=== PATIENT | male | born 1940 | race Caucasian/White ===

== ENCOUNTER → 2016-05-15 | Outpatient (CLI) | payer BC ==
[~2016-05-15] MED LIST: ASPI-461 PO; BUPR300T43 PO; CALCTAB5 PO; DUTA0.5C PO; IBUP-1050 PO; MECL1TAB42 PO; MULTTAB58 PO; NAPR1TAB9 PO; NTRGSL/4 UT; RABE20TA5 PO; ROSU20TA PO; SENNTAB23 PO
--- NOTE | 2016-05-16 14:42 | DIAGNOSTIC IMAGING REPORT ---
CERVICAL SPINE 4 OR 5 VIEWS CLINICAL HISTORY: Neck pain. COMPARISON STUDY: No previous studies for comparison. FINDINGS: There are suspected bilateral hearing aids. C7 is partially obscured on this exam. No fracture or suspicious lesion is identified within visualized portions of the cervical spine. There is moderate disc space narrowing at C6-C7. There is moderate multilevel facet arthrosis. There is resultant multilevel bony neural foraminal narrowing. IMPRESSION: 1. No cervical spine fracture or subluxation. 2. Moderate multilevel degenerative changes of the cervical spine with resultant multilevel bony neural foraminal narrowing. 3. Partial obscuration of C7. Electronically signed by: Vinny Ca M.D. 05/16/2016 2:40 PM Dictated Date/Time: 05/16/2016 2:39 PM
== END | disposition home or self-care (01) ==
LOC: C.RDSM 15:40
PROVIDERS: ATTEND Physical Medicine & Rehabilitation Sports Medicine
DX: M54.2 Cervicalgia (principal)

== ENCOUNTER → 2016-09-11 | Outpatient (CLI) | payer BC ==
--- NOTE | 2016-09-11 14:31 | DIAGNOSTIC IMAGING REPORT ---
LEFT WRIST MIN 3 VIEWS ROUTINE CLINICAL HISTORY: CARPAL TUNNEL SYNDROME LEFT WRIST pain COMPARISON: None. DISCUSSION: Moderate generalized degenerative change. Subchondral cysts of the lobe of the radial styloid as well as distal ulna. Chondrocalcinosis. Calcification triangular fibrocartilage. No acute bony abnormality. There is no evidence for soft tissue swelling. IMPRESSION: Degenerative change. Chondrocalcinosis. Electronically signed by: Dontrell Donis M.D. 09/11/2016 2:29 PM Dictated Date/Time: 09/11/2016 2:29 PM
== END | disposition home or self-care (01) ==
LOC: C.RDSM 14:25
PROVIDERS: ATTEND Physician Assistant
DX: G56.02 Carpal tunnel syndrome, left upper limb (principal)

== ENCOUNTER → 2016-11-17 | Day surgery (SDC) | payer BC ==
[2016-11-05 11:05] VITALS: Ht 180.3 cm; Wt 81.8 kg
[~2016-11-17] VITALS: Ht 180.3 cm; Wt 81.8 kg
[~2016-11-17] MED LIST changes: +ATROPINE SULFATE 0.1 MG/ML 5ML SYR IV PRN; +BUPIVACAINE 0.5 % 5 MG/1 ML MPF 30ML VIAL ONE; -CALCTAB5 PO; +CLINDAMYCIN 900MG IV SCH; +EpHEDrine SULFATE INJ 50 MG/ML AMP IV PRN; +FENTANYL CITRATE INJ 50 MCG/1 ML 2 ML VIAL IV PRN; +FENTANYL CITRATE INJ 50 MCG/1 ML 2 ML VIAL ONE; +LACTATED RINGER'S 1000ML 1,000 ML IV SCH; +LIDOCAINE HCL 2% 2 ML VIAL (20MG/ML) ONE; +LIDOCAINE HCL 2% LOCAL 20 ML VIAL ONE; +MIDAZOLAM HCL 1 MG/ML 2ML VIAL ONE; +ONDANSETRON INJ 2 MG/ML 2 ML VIAL IV PRN; +PROPOFOL IV EMULSION 10 MG/ML 20 ML VIAL IV ONE; +SODIUM CHLORIDE 0.9% 1000ML 1,000 ML IV SCH
--- NOTE | 2016-11-17 06:37 | History & Physical Bridge Note ---
H&P Re-Evaluation Bridge Note: I have examined the patient, reviewed the History & Physical and in the interval since the performance of the History & Physical I have noted the following changes of clinical significance: No changes noted
--- NOTE | 2016-11-17 06:39 | Discharge Instructions ---
Discharge Instructions Date of Service Nov 17, 2016. Visit Reason for Visit: Left Wrist Carpal Tunnel Syndrome Discharge Discharge Diagnosis / Problem: same Discharge Goals Goal(s): Decrease discomfort, Improve function Medications Stopped Medications Name(s): na Restart Stopped Medication(s): use all scripts as directed Activity Recommendations Activity Limitations: as noted below Lifting Limitations: until after follow-up appointment Exercise/Sports Limitations: until after follow-up appointment May Resume Sexual Activity: when tolerated Shower/Bathe: keep incision dry Anesthesia . Post Anesthesia Instructions: If you have had General Anesthesia or IV Sedation: * Do not drive today. * Resume driving when surgeon permits. * Do not make important decisions or sign legal documents today. * Call surgeon for: 1. Temperature elevations greater than 101 degrees F. 2. Uncontrollable pain. 3. Excessive bleeding. 4. Persistent nausea and vomiting. 5. Medication intolerance (nausea, vomiting or rash). * For nausea and vomiting use only clear liquids such as: tea, soda, bouillon until nausea subsides, then gradually increase diet as tolerated. * If you have any concerns or questions, call your surgeon's office. If physician is unavailable and it is an emergency, call 911 or go to the nearest emergency room. . Instructions / Follow-Up Instructions / Follow-Up The following are instructions to follow after minor hand surgery. ACTIVITY RECOMMENDATIONS: * Minimize activity until your first visit after surgery. * No excessive walking, jogging, sports or laboring. * Return to activity is individualized. Most patients are able to return to everyday activities within 2 weeks. * Return to sports or intensive labor usually occurs at 1-2 months. * DRIVING: Driving may be resumed when you feel you have adequate pain control and use of the hand. * BATHING: You may shower or sponge-bathe immediately after surgery. The dressing will need to be covered with a plastic bag or plastic wrap until the dressing is changed on the fourth or fifth day after surgery. Once the dressing has been changed on the fourth or fifth day after surgery, you may shower and get the incision wet. * Wash with regular soap and water. * Do not bathe (submerge the incision), soak, swim or use a hot tub until the incision is completely healed over with normal skin and the doctor has given the OK to proceed. * There is no need to apply any ointments, powders or salves to your incision. * Do not apply alcohol or hydrogen peroxide directly to the incision. Diluted peroxide (50:50 mixture with sterile saline) may be used to clean dried blood from around the incision area. WORK/SCHOOL: * You may return to sedentary work or school when you are feeling comfortable. This is usually 3-7 days after surgery. * Expect increased discomfort with increased activity. Continue to elevate and ice the hand as much as possible. DIET: * Resume previous diet. MEDICATIONS: * You will have a prescription for pain medication and an anti-inflammatory medication after surgery. Use the pain pills for severe pain and the anti-inflammatory for less severe pain. * Once the pain pills have run out, try to use the anti-inflammatory. If this is not effective then contact the office for assistance. * The pain medication may cause nausea, constipation and sleepiness. You should see how they affect you before driving or similar activity. * The anti-inflammatory may cause stomach upset and bleeding. If this occurs, let your doctor know immediately . * Some patients may need blood clot prevention. This can be done with either a pill or a simple shot. Your doctor will advise you on when to begin these medications and how to take them. * Do not take aspirin or other anti-inflammatory products (i.e. Advil or Aleve ) if taking blood thinner medication. * Take a stool softener like Colace or a stimulant like Senokot to prevent constipation. SPECIAL CARE INSTRUCTIONS: ICE: * Do not apply ice directly to the skin. * Use a thin dressing or stockinet between the skin and ice bag. The dressing in place after surgery will suffice. * Apply ice for 20-30 minutes and repeat every 2-4 hours. This is especially important for the first 3-7 days after surgery. * Once the pain improves, use ice as needed. ELEVATION: * Keep your hand elevated at or above the level of your heart as much as possible. * Expect some increased discomfort and swelling if you allow your hand to hang down for any length of time. DRESSING: * Your dressing will be changed 4-5 days after surgery by the physical therapist or physician's senior executive assistant. Leave your dressing intact until this time. * You may then change your dressing daily with clean dry gauze or Band-aids and a soft wrap or stockinet. * Always wash your hands prior to touching the incision area. * Once the stitches are removed, you may leave the wound open to air or cover with a thin bandage. * There is no need to apply any ointments, powders or salves to your incision. * Expect some bloody drainage for the first few days after surgery. * Leave the tape strips in place (if present) for 5-7 days. * The initial dressing after surgery may become soaked with blood or fluid which is normal. You may reinforce your dressing with clean, dry gauze as needed. BRACE: * Bracing is generally not needed after routine hand surgery. THERAPY: * Physical therapy may be prescribed after your surgery. * For carpal tunnel and trigger digit surgery you may begin moving your fingers and wrist immediately after surgery as tolerated. * Be careful to not overuse. * Once the sutures are removed, further range of motion exercises can be performed. * Hand incisions may be very sensitive for a few months after surgery so avoid excessive pressure on the incision. If necessary, use a padded weightlifters' glove. * You may massage the incision with skin cream to make it less sensitive and reduce scarring. * Hand strength usually returns with normal use. * If needed, squeezing a soft sponge or Play-dough may help. * Your doctor will recommend physical therapy if necessary. PROBLEMS/QUESTIONS: * If you have any problems such as severe pain, numbness, tingling or high fevers or if you have any questions, please contact the office at [phone]. * It is not uncommon to have some numbness and tingling after the surgery especially if you have had a nerve block done. This should gradually improve over the first 1- 2 days. If this persists longer or worsens then contact the office. FOLLOW UP VISIT: * If not already scheduled, please call the office at to schedule follow-up appointments for approximately 10 days, 6 weeks and 3 months after surgery. Diet Recommendations Recommended Home Diet: resume previous diet Procedures Procedures Performed: left Carpal tunnel release Pending Studies Studies pending at discharge: no Medical Emergencies . Who to Call and When: Medical Emergencies: If at any time you feel your situation is an emergency, please call 911 immediately. . Non-Emergent Contact Non-Emergency issues call your: Specialist Call Non-Emergent contact if: temperature is above 101.5 . . "Provider Documentation" section prepared by Bob Red. .
--- NOTE | 2016-11-17 07:31 | [facility] Post Operative Brief Note ---
Immediate Operative Summary Operative Date Nov 17, 2016. Pre-Operative Diagnosis Left Carpal Tunnel Release Post-Operative Diagnosis Same Procedure(s) Performed Left Wrist Open Carpal Tunnel Release Surgeon Dr Red Avionics Engineer Surgeon(s) Shelly Posey PA-C Estimated Blood Loss Trace Findings CTS Fluids (cc crystalloids) 600cc Specimens None Drains none Anesthesia local/sedation Complication(s) None Disposition Recovery Room / PACU
[2016-11-17 07:35] VITALS: TEMP 36.7
--- NOTE | 2016-11-17 07:40 | [facility] Operative Report ---
Operative Report Date of Service Nov 17, 2016. Operative Report Preoperative diagnosis carpal tunnel syndrome Postoperative diagnosis carpal tunnel syndrome Surgeon Teofilo Gannon. Sefchick no resident or fellow available Perioperative situation medically cleared male with intractable carpal tunnel complaints was left upper extremity has numbness particularly in the median nerve distribution of his hand particularly the thumb index and long finger. Denies any other issues. Consent obtained risks and benefits discussed in detail. Operation after the patient probably identified site verified consent for vital 900 mg clindamycin confirmed as being given left upper extremity was injected with 5 mL of plain marcaine and 5 ml of 2% plain lidocaine. he was also given some iv sedation by anesthesia. left upper extremity was then prepped and draped in usual routine fashion. tourniquet was inflated to 250 mmhg after exsanguination of the limb with a rubber esmarch bandage for a total of 14 minutes. a curvilinear incision was made based on the fourth ray. sharp dissection carried to the skin blunt dissection down to the palmar fascia. this was then incised under direct vision. the transverse carpal ligament and antebrachial fascia was then identified. this was then incised with a fresh 15 blade and a full-thickness release occurred approximately 1/2 cm proximal to the hamate to the superficial palmar arch. The motor takeoff branch was identified but not explored. The floor of the carpal canal and no masses. The nerve became hyperemic upon release of the ligament within 30 seconds. The wound was then irrigated. The wound was then closed with horizontal mattress 3- 0 nylon sutures and Dermabond. A volar splint was then applied. Soft tissue dressing was applied. Patient was a transfer to [facility] in satisfactory condition having tolerated the procedure well. Estimated blood loss was trace. Crystalloid was 600 mL. End of dictation thank you, Especially possible chart I attest to the content of the Intraoperative Record and any orders documented therein. Any exceptions are noted below.
--- NOTE | 2016-11-17 07:47 | Anesthesia Progress Nt - [facility] ---
Anesthesia Post Op Note Date & Time Nov 17, 2016 at 07:46 Vital Signs Pain Intensity: 0 Vital Signs Past 12 Hours Date Time Temp Pulse Resp B/P (MAP) Pulse Ox O2 Delivery O2 Flow Rate FiO2 11/17/16 07:35 36.7 63 16 144/66 (92) 95 Room Air 11/17/16 06:35 36.7 60 20 157/93 (114) 98 Room Air Notes Mental Status: alert / awake / arousable, participated in evaluation Pt Amnestic to Procedure: Yes Nausea / Vomiting: adequately controlled Pain: adequately controlled Airway Patency, RR, SpO2: stable & adequate BP & HR: stable & adequate Hydration State: stable & adequate Anesthetic Complications: no major complications apparent
[2016-11-17 08:01] VITALS: BP 126/65; PULSE 56; O2SAT 97
--- NOTE | 2016-11-17 10:44 | [facility] Operative Report ---
Operative Report Operative Date Nov 17, 2016. Pre-Operative Diagnosis Left Carpal Tunnel Release Post-Operative Diagnosis Left wrist Same Procedure(s) Performed Left Wrist Open Carpal Tunnel Release Surgeon Dr Red State Farm Agent Surgeon(s) Shelly Posey PA-C Estimated Blood Loss Trace Findings Left carpal Tunnel syndrome Fluids (cc crystalloids) 600cc Specimens None Complication(s) None Indications This 76-year-old white male presented to the office with complaints of left hand numbness and tingling that was worse with activity. He had tried conservative care measures without success. EMG was obtained. He elected to proceed with surgical intervention in hopes of alleviating his numbness and tingling. Description of Procedure Patient was taken to the operating room where he was administered local anesthetic and sedation. He was prepped and draped in the usual sterile fashion. Please see Dr. Red's operative report for specifics of the procedure. I was present for the entire case, from initial patient positioning through final wound closure. Assistance was provided in tissue retraction, hemostasis, wound closure, and splint placement. Patient was taken to phase 2 recovery in satisfactory condition. I attest to the content of the Intraoperative Record and any orders documented therein. Any exceptions are noted below.
== END | disposition home or self-care (01) ==
LOC: X.SURG 06:17
PROVIDERS: ATTEND Physical Medicine & Rehabilitation Sports Medicine
DX: G56.02 Carpal tunnel syndrome, left upper limb (principal); K21.9 Gastro-esophageal reflux disease without esophagitis; F32.9 Major depressive disorder, single episode, unspecified; N40.0 Benign prostatic hyperplasia without lower urinary tract symptoms; Z90.49 Acquired absence of other specified parts of digestive tract; Z79.82 Long term (current) use of aspirin

== ENCOUNTER → 2016-11-19 | Outpatient (CLI) | payer BC ==
[~2016-11-19] MED LIST changes: -ATROPINE SULFATE 0.1 MG/ML 5ML SYR IV PRN; -BUPIVACAINE 0.5 % 5 MG/1 ML MPF 30ML VIAL ONE; -CLINDAMYCIN 900MG IV SCH; -EpHEDrine SULFATE INJ 50 MG/ML AMP IV PRN; -FENTANYL CITRATE INJ 50 MCG/1 ML 2 ML VIAL IV PRN; -FENTANYL CITRATE INJ 50 MCG/1 ML 2 ML VIAL ONE; -LACTATED RINGER'S 1000ML 1,000 ML IV SCH; -LIDOCAINE HCL 2% 2 ML VIAL (20MG/ML) ONE; -LIDOCAINE HCL 2% LOCAL 20 ML VIAL ONE; -MIDAZOLAM HCL 1 MG/ML 2ML VIAL ONE; -ONDANSETRON INJ 2 MG/ML 2 ML VIAL IV PRN; -PROPOFOL IV EMULSION 10 MG/ML 20 ML VIAL IV ONE; -SODIUM CHLORIDE 0.9% 1000ML 1,000 ML IV SCH
--- NOTE | 2016-11-19 15:24 | DIAGNOSTIC IMAGING REPORT ---
LEFT PELVIS UNILATERAL HIP 1 VIEW CLINICAL HISTORY: LEFT HIP PAIN COMPARISON: None. DISCUSSION: Mild degenerative change of the hips bilaterally. No acute bony abnormality. No evidence for acetabular protrusion. There is no evidence for soft tissue swelling. IMPRESSION: Mild degenerative change. No acute process Electronically signed by: Dontrell Donis M.D. 11/19/2016 3:23 PM Dictated Date/Time: 11/19/2016 3:23 PM
== END | disposition home or self-care (01) ==
LOC: C.RDSM 15:06
PROVIDERS: ATTEND Physician Assistant
DX: M25.552 Pain in left hip (principal); M16.12 Unilateral primary osteoarthritis, left hip

== ENCOUNTER → 2017-05-25 | Day surgery (SDC) | payer BC ==
[2017-05-12 14:54] VITALS: BMI 26.0
--- NOTE | 2017-05-12 15:21 | PAT Medication Instructions ---
Service Date May 12, 2017. Current Home Medication List Aspirin (Aspirin), 81 MG PO QAM Bupropion Hcl (Bupropion Hcl Xl), 300 MG PO QAM Dutasteride (Avodart), 0.5 MG PO QPM Ibuprofen (Advil), 200-600 MG PO Q4H PRN for Pain Meclizine Hcl (Meclizine Hcl), 12.5 MG PO TID PRN for Dizziness or Vertigo Multiple Vitamin (Multivitamin), 1 TAB PO QPM Naproxen (Aleve), 220 MG PO DAILY PRN for Pain Nitroglycerin (Nitrostat), 0.4 MG UT PRN Rabeprazole Sodium (Aciphex), 20 MG PO QPM Rosuvastatin Calcium (Crestor), 20 MG PO QPM Sennosides-Docusate Sodium (Stool Softener), 1 TAB PO UD PRN for Constipation Medication Instructions For Your Scheduled Surgery - Check with surgeon for instructions: Naproxen (Aleve), 220 MG PO DAILY PRN for Pain Ibuprofen (Advil), 200-600 MG PO Q4H PRN for Pain - Check with surgeon and multiplex operator for instructions: Aspirin (Aspirin), 81 MG PO QAM - Hold the following medications the morning of surgery: Multiple Vitamin (Multivitamin), 1 TAB PO QPM Sennosides-Docusate Sodium (Stool Softener), 1 TAB PO UD PRN for Constipation - Take the following medications the morning of surgery with a sip of water: Nitroglycerin (Nitrostat), 0.4 MG UT PRN (if needed) Meclizine Hcl (Meclizine Hcl), 12.5 MG PO TID PRN for Dizziness or Vertigo (if needed) Bupropion Hcl (Bupropion Hcl Xl), 300 MG PO QAM - Take the following medications as scheduled the night before surgery: Sennosides-Docusate Sodium (Stool Softener), 1 TAB PO UD PRN for Constipation ( if needed) Rabeprazole Sodium (Aciphex), 20 MG PO QPM Rosuvastatin Calcium (Crestor), 20 MG PO QPM Nitroglycerin (Nitrostat), 0.4 MG UT PRN (if needed) Meclizine Hcl (Meclizine Hcl), 12.5 MG PO TID PRN for Dizziness or Vertigo (if needed) Dutasteride (Avodart), 0.5 MG PO QPM If you have any questions please call us at [phone] or [phone] or [phone]
[2017-05-12 15:55] LABS: BASO % 0.6 %; BASO ABS # 0.04 K/uL (0-0.2); EOS % 5.2 %; EOS ABS # 0.37 K/uL (0-0.5); HEMATOCRIT 39.7 % (42-52); HEMOGLOBIN 13.6 g/dL (14.0-18.0); IG# 0.04 K/uL (0.00-0.02); LYMPH % 22.8 %; LYMPH ABS # 1.63 K/uL (1.2-3.4); MEAN CELL VOLUME 83.2 fL (80-100); MEAN CORPUSCULAR HEMOGLOBIN 28.5 pg (25-34); MEAN CORPUSCULAR HGB CONC 34.3 g/dl (32-36); MEAN PLATELET VOLUME 10.2 fL (7.4-10.4); MONO % 5.9 %; MONO ABS # 0.42 K/uL (0.11-0.59); NEUT % 64.9 %; NEUT ABS # 4.64 K/uL (1.4-6.5); PLATELET COUNT 244 K/uL (130-400); RED CELL DISTRIBUTION WIDTH CV 13.2 % (11.5-14.5); RED CELL DISTRIBUTION WIDTH SD 39.6 fL (36.4-46.3); WHITE BLOOD COUNT 7.14 K/uL (4.8-10.8)
--- NOTE | 2017-05-12 15:59 | DIAGNOSTIC IMAGING REPORT ---
CHEST 2 VIEWS ROUTINE HISTORY: 77 years-old Male PAT preoperative exam. No acute chest complaints. COMPARISON: Chest radiograph 07/23/2014 TECHNIQUE: PA and lateral views of the chest FINDINGS: The cardiomediastinal and hilar silhouettes are within normal limits. No pneumothorax, pleural effusion, focal airspace consolidation or overt pulmonary edema. Mild diaphragmatic flattening and hyperinflation. Degenerative changes are seen within the shoulders and spine. IMPRESSION: No acute process. The above report was generated using voice recognition software. It may contain grammatical, syntax or spelling errors. Electronically signed by: Irwin Mitchell M.D. 05/12/2017 3:58 PM Dictated Date/Time: 05/12/2017 3:56 PM
[2017-05-12 16:07] LABS: CALCIUM 8.8 mg/dl (8.5-10.1); CREATININE 1.11 mg/dl (0.60-1.40); POTASSIUM 4.3 mmol/L (3.5-5.1)
[~2017-05-25] VITALS: Ht 180.3 cm; Wt 81.3 kg
[~2017-05-25] MED LIST changes: +ACETAMINOPHEN 325 MG TAB PO PRN; +ATROPINE SULFATE 0.1 MG/ML 5ML SYR IV PRN; +CIPR-255 PO; +CIPROFLOXACIN / D5W 400 MG IV SCH; +EpHEDrine SULFATE INJ 50 MG/ML AMP IV PRN; +FENTANYL CITRATE INJ 50 MCG/1 ML 2 ML VIAL ONE; +HYDR-5688 PO; +HYDROCODONE/ACETAMOPHEN 5/325MG TAB PO PRN; +KETAMINE HCL INJ 50 MG/ML 10 ML VIAL ONE; +LIDOCAINE HCL 2% 2 ML VIAL (20MG/ML) ONE; +PROPOFOL IV EMULSION 10 MG/ML 20 ML VIAL IV ONE; +SODIUM CHLORIDE 0.9% 1000ML 1,000 ML IV SCH
[2017-05-25 07:05] VITALS: Ht 180.3 cm; Wt 81.3 kg
--- NOTE | 2017-05-25 09:26 | Discharge Instructions ---
Discharge Instructions Date of Service May 25, 2017. Admission Reason for Admission: Benign Prostatic Hyperplasia Discharge Discharge Diagnosis / Problem: BPH Discharge Goals Goal(s): Decrease discomfort, Improve function, Increase independence, Improve disease control Activity Recommendations Activity Limitations: resume your previous activity Lifting Limitations: none Exercise/Sports Limitations: none May Resume Sexual Activity: when tolerated Shower/Bathe: no limitations Driving or Machine Use: resume 1 day after discharge . Instructions / Follow-Up Instructions / Follow-Up Please keep your previously scheduled follow up with Dr. Payne Current Hospital Diet Patient's current hospital diet: Discharge Diet Recommended Diet: Regular Diet Procedures Procedures Performed: Meatal Dilation, Cystoscopy, Urolift Pending Studies Studies pending at discharge: no Medical Emergencies . Who to Call and When: Medical Emergencies: If at any time you feel your situation is an emergency, please call 911 immediately. . Non-Emergent Contact Non-Emergency issues call your: Urologist Call Non-Emergent contact if: you have a fever, temperature is above 101.5, your pain is not controlled . . "Provider Documentation" section prepared by Wiley Desai. . VTE Core Measure Inpt VTE Proph given/why not?: Treatment not indicated [place] Drug Monitoring Program Search Results: patient reviewed within database, no issues identified
--- NOTE | 2017-05-25 09:31 | [facility] Operative Report ---
Operative Report Operative Date May 25, 2017. Pre-Operative Diagnosis Nocturia, Benign prostatic hyperplasia with urinary obstruction Post-Operative Diagnosis Nocturia, Benign prostatic hyperplasia with urinary obstruction Procedure(s) Performed Meatal Dilation, Cystoscopy, Urolift Surgeon Dr. Payne Tap Dancer Surgeon(s) none Estimated Blood Loss 5 ML Findings Slight meatal stenosis; lateral lobe hypertrophy with slight asymmetry Specimens none per surgeon Drains none Anesthesia MAC Complication(s) None Disposition Recovery Room / PACU (stable) Indications Symptomatic BPH Description of Procedure The patient was identified in the preoperative holding area, appropriate informed consents were reviewed and completed, and the patient was transported to the operating suite. Upon arrival he received appropriate preoperative antibiotics in the form of ciprofloxacin. Adequate sedation was achieved, and he was placed in dorsal lithotomy position where he was sterilely prepped and draped in standard fashion. I attempted to pass a cystoscope per urethra, however his meatus was not accommodating. Utilizing male urethral sounds, I gently dilated his meatus to 24 Indonesian. I then passed the cystoscope and inspected the urethra. There was no evidence of stricture disease. His prostate was noted to have lateral lobe hypertrophy with asymmetry. Patient's right lobe was somewhat lobulated and causing more obstruction than his left lateral lobe. There was no significant intravesical component. Inspection of the bladder revealed no abnormalities of the bladder mucosa. Following full inspection, I placed the first prostatic urethra lift device just inside the patient's ladder neck on the right side. A second suture was placed on the left side and symmetrical position. I then placed sutures adjacent to the meatus. However one of the lobulated areas of the right lateral lobe continue to protrude across the lumen causing some continued obstruction. A fifth suture was placed in this area while gently sweeping this lateral lobe upward. This opened the lumen very nicely creating an open channel. I then emptied the bladder and concluded the case. He was taken to the PACU in stable condition. I attest to the content of the Intraoperative Record and any orders documented therein. Any exceptions are noted below.
--- NOTE | 2017-05-25 09:39 | Anesthesiology Progress Note ---
Anesthesia Post Op Note Date & Time May 25, 2017 at 09:39 Vital Signs Pain Intensity: 0 Vital Signs Past 12 Hours Date Time Temp Pulse Resp B/P (MAP) Pulse Ox O2 Delivery O2 Flow Rate FiO2 05/25/17 09:30 61 20 105/96 98 Oxymask 4 05/25/17 09:23 36.2 63 16 104/61 97 Oxymask 10 Notes Mental Status: alert / awake / arousable, participated in evaluation Pt Amnestic to Procedure: Yes Nausea / Vomiting: adequately controlled Pain: adequately controlled Airway Patency, RR, SpO2: stable & adequate BP & HR: stable & adequate Hydration State: stable & adequate Anesthetic Complications: no major complications apparent
[2017-05-25 09:50] VITALS: BP 154/65; PULSE 61; TEMP 36.4; O2SAT 99
[2017-05-25 10:20] VITALS: BP 141/63; PULSE 59; O2SAT 99
== END | disposition home or self-care (01) ==
LOC: C.ACU 06:30
PROVIDERS: ATTEND Urology
DX: N40.1 Benign prostatic hyperplasia with lower urinary tract symptoms (principal); N13.8 Other obstructive and reflux uropathy; N35.9 Urethral stricture, unspecified; R35.1 Nocturia; F43.21 Adjustment disorder with depressed mood; Z79.899 Other long term (current) drug therapy; Z79.82 Long term (current) use of aspirin; E78.00 Pure hypercholesterolemia, unspecified